=== PATIENT | male | born 1935 | race Caucasian/White ===

== ENCOUNTER → 2024-02-23 07:12 | Outpatient (REF) | payer MEDICARE, BC, SELFPAY ==
[2024-02-23 10:49] LABS: PSA, Total - Diagnostic < 0.06 ng/ml (0.0-4.0)
== END ==
LOC: REG 07:12
PROVIDERS: ATTENDING PHYSICIAN Specialist; FAMILY PHYSICIAN Family Medicine
DX: C61 Malignant neoplasm of prostate (principal)
CPT/HCPCS: 36415; 84153